=== PATIENT | female | born 1985 | race African-American/Black ===

== ENCOUNTER 2016-12-20 17:50 | Inpatient (IN) ==
[2016-12-20] MEDS ORDERED: SODIUM CHLORIDE 0.9% 500 ML IV STA (18:24)
[2016-12-20] MEDS ORDERED: PANTOPRAZOLE 40 MG VIAL IV STA ×2 (18:24→20:25)
[2016-12-20] MEDS ORDERED: METOCLOPRAMIDE 10 MG/2 ML VIAL IV STA (18:24)
[2016-12-20] MEDS ORDERED: ONDANSETRON 4 MG/2 ML VIAL IV STA (18:24)
--- NOTE | 2016-12-20 18:29 | Emergency Department Note ---
Arrival - Arrival Chief Complaint: Abdominal / Flank Pain Stated Complaint: short of breath, pain in stomach, pin in upper rig ED Nursing Triage Note: RUQ/EPIGASTRIC PAIN FOR PAST WEEK, DOES HAVE HX OF ? TACHYCARDIA, CLEARED BY BEARING [employer]KER, REFERRED TO GI BUT HASNT GOTTEN APPOINTMENT YET, EPIGASTRIC PAIN GETTING WORSE AND INCREASING AFTER EATING Mode of Arrival: Ambulatory Limitations: No Limitations Source: Patient Time Seen by Provider: 12/20/16 18:24 - History of Present Illness HPI Narrative: This 31-year-old black female presents with one-week of midepigastric burning radiating the back, heartburn, belching, water brash, and nausea. She has had no malika vomiting, chills, fever, history of pancreatitis, history of peptic ulcer disease, or history of inflammatory bowel disease. The patient does state she has not had a bowel movement for several days but is otherwise in no acute medical distress.. Allergies/Adverse Reactions: Allergies Allergy/AdvReac Type Severity Reaction Status Date / Time No Known Allergies Allergy Verified 12/20/16 18:10 Home Medications: Home Medications Medication Instructions Recorded Confirmed Type Atenolol 50 mg PO DAILY 10/23/15 12/20/16 History Chlorthalidone [Hygroton] 12.5 mg PO DAILY 12/20/16 12/20/16 History Ergocalciferol (Vitamin D2) 50,000 unit PO Q7D 12/20/16 12/20/16 History [Vitamin D2] Omeprazole [Prilosec] 20 mg PO DAILY 12/20/16 12/20/16 History Potassium Chloride 10 meq PO BID 12/20/16 12/20/16 History Ranitidine Tab [Zantac Tab] 150 mg PO BID 12/20/16 12/20/16 History Review of System - Review of System 12 point system: reviewed and no additional remarkable complaints except as stated - Review of System Constitutional: Present: as per HPI Gastrointestinal: Present: as per HPI Medical,Surgical,& Family Hx - Medical History Cardio: History of: Hypertension - Family History Family History: Reports;: Family Diabetes, Family Heart Disease, Family Hypertension - Social History Smoking Status: Never smoker Exam Physical Examination: GENERAL: Obese black female in no acute distress. HEENT: Normocephalic. No trauma. Moist mucous membranes. EOMI. PERRLA. ENT NML NECK: Supple. No adenopathy. CARDIAC: Regular. No murmurs. CHEST: Clear to auscultation. No respiratory distress. ABDOMEN: Soft. Tender right upper quadrant and midepigastric area. Active bowel sounds. EXTREMITIES: No trauma. Normal ROM. No pedal edema. SKIN: No diaphoresis. No rash. NEURO: Alert. Neuro intact no focal deficits. Vital Signs: Vital Signs Temperature 98.4 F 12/20/16 18:19 Pulse Rate 98 H 12/20/16 18:19 Respiratory Rate 18 12/20/16 18:19 Blood Pressure 109/64 12/20/16 18:19 O2 Sat by Pulse Oximetry 100 12/20/16 18:04 Course - Reevaluation(s) Reevaluation #1: Advised patient of her findings of cholelithiasis and need for removal. - Consultations Consultation #1: Discussed with Dr. Larsen who will admit the patient for further evaluation treatment. Results - Labs CBC & BMP: 12/20/16 18:48 12/20/16 18:48 Labs: I have reviewed the laboratory and noted the normal results - Diagnostic Findings Procedure: Abdominal x-ray: image reviewed by me, report reviewed by me ( Colonic gas and feces consistent with constipation), Ultrasound: image reviewed by me, report reviewed by me (Abdomen: Cholelithiasis) Disposition Clinical Impression: Cholelithiasis Case discussed with: patient, patient's family Disposition: Still a Patient Condition: Stable Time of Disposition: 20:24
[2016-12-20] MEDS ORDERED: METOCLOPRAMIDE 10 MG/2 ML VIAL ONE (18:33)
[2016-12-20] MEDS ORDERED: PANTOPRAZOLE 40 MG VIAL IV ONE ×2 (18:33→20:41)
[2016-12-20] MEDS ORDERED: ONDANSETRON 4 MG/2 ML VIAL ONE (18:33)
[2016-12-20 18:49] LABS: Basophils % 0.8 % (0.0-0.8); Eosinophils # 0.3 10*3/uL (0.0-0.87); Eosinophils % 6.5 % (0.00-10.9); Hematocrit 38.6 VOL% (35.7-47.0); Hemoglobin 13.1 GM/DL (12.0-16.0); Immature Granulocytes % 0.2 %; Immature Granulocytes Absolute 0.01 #; Lymphocytes # 2.3 10*3/uL (1.4-4.0); Lymphocytes % 44.9 % (21.3-54.2); Mean Corpuscular HGB Conc 33.9 GM/DL (32-36); Mean Corpuscular Hemoglobin 29 PG (27-34); Mean Corpuscular Volume 86.5 FL (87-102); Monocytes # 0.5 10*3/uL (0.11-0.8); Neutrophils # 1.9 10*3/uL (1.4-7.4); Neutrophils % 37.6 % (38.7-73.9); Platelet Count 228 T/CUMM (130-400); Red Blood Count 4.46 MC/CUMM (3.8-5.5); Red Cell Distribution Width 11.9 % (9.3-17.3); White Blood Count 5.1 T/CUMM (4-12)
[2016-12-20 18:57] LABS: Apearance,Urine CLEAR (Clear); Bilirubin,Urine Negative (Negative); Blood, Urine Negative (Negative); Glucose,Urine (UA) Negative (Negative); Ketones,Urine Negative (Negative); Mucus,Urine Occasional /LPF (Occasional); Nitrite,Urine Negative (Negative); Protein,Urine Negative; Squamous Epithelial Cell,Urine Occasional /HPF (0-10); Urine Color Yellow (Yellow); Urine Urobilinogen < 2.0 EU/DL (0.2-1.0); WBC,Urine <1 /HPF (0-6)
[2016-12-20 19:17] LABS: Lactic Acid 1.6 MMOL/L (0.4-2.0)
[2016-12-20 19:49] LABS: Blood Urea Nitrogen 7 MG/DL (7-18); Calcium 9.5 MG/DL (8.5-10.1); Potassium 3.7 MMOL/L (3.5-5.1); Sodium 138 MMOL/L (136-145)
--- NOTE | 2016-12-20 20:01 | Ultrasound Report ---
Exam: Ultrasound abdomen Limited, right upper quadrant Clinical History: 31 years Female abdominal pain, nausea and vomiting Technique: Real-time ultrasound of the right upper quadrant with image documentation Comparison: No relevant comparisons Findings: Liver: Unremarkable. No parenchymal abnormalities. No intrahepatic ductal biliary dilatation. Gallbladder: Multiple stones within an otherwise normal-appearing gallbladder Common bile duct: Common bile duct is within normal limits Pancreas: Unremarkable as visualized Right kidney: Unremarkable. No hydronephrosis. No calyceal stones. Impression: 1. Cholelithiasis PROCEDURE INTERPRETED AT [facility] DEPARTMENT OF RADIOLOGY Final Report Signed by: Guerrero Woods MD
[2016-12-20 20:04] LABS: Alanine Aminotransferase 21 U/L (13-56); Alkaline Phosphatase 85 U/L (45-117); Aspartate Amino Transferase 17 U/L (0-37); Bilirubin,Total < 0.39 MG/DL (0.2-1.0); Glucose 89 MG/DL (74-106); Osmolality,Calculated 271.7 MOS/KG (273-304); Total Protein 8.4 G/DL (6.4-8.3)
[2016-12-20 20:05] LABS: Amylase 72 U/L (25-115)
--- NOTE | 2016-12-20 20:08 | XRay Report ---
EXAM: XR abdomen 2V CLINICAL INDICATION: Abdominal Pain COMPARISON: None Findings: No gastric distention. No abnormally dilated small bowel loops are identified to suggest obstruction. No free intraperitoneal air. . Visceral shadows are normal. No abnormal focal soft tissue masses or calcific densities identified in the abdomen or pelvis. IMPRESSION: No radiographic abnormalities PROCEDURE INTERPRETED AT [facility] DEPARTMENT OF RADIOLOGY Final Report Signed by: Guerrero Woods MD
[2016-12-20] MEDS ORDERED: hydrALAZINE 20 MG/1 ML VIAL IV PRN (20:25)
[2016-12-20] MEDS: SODIUM CHLORIDE 0.45% 1,000 ML IV SCH (23:47)
[2016-12-20] MEDS: HYDROmorphone 2 MG/1 ML VIAL IV PRN (23:50)
[2016-12-20] MEDS: METOCLOPRAMIDE 10 MG/2 ML VIAL IV SCH (23:50)
[2016-12-21] MEDS: METOCLOPRAMIDE 10 MG/2 ML VIAL IV SCH ×3 (05:42→17:36)
[2016-12-21] MEDS: SODIUM CHLORIDE 0.45% 1,000 ML IV SCH ×4 (05:43→20:10)
[2016-12-21] MEDS: PANTOPRAZOLE 40 MG VIAL IV SCH (09:15)
--- NOTE | 2016-12-21 09:23 | Gastrointestinal Consult Note ---
<Lucy Mackey - Last Filed: 12/21/16 09:21> Assessment and Plan (1) Epigastric pain Status: Acute Assessment and plan: 12/22-Several day history of epigastric pain, worsening GERD, nausea and RUQ abdominal pain radiating into back. No prior history of PUD or endoscopy. Gallbladder US results noted as below. Plan for EGD today to further evaluate. Plan and addendum to follow by Dr Simms. Current Visit: Yes History of Present Illness Chief complaint: Epigastric pain History of present illness: Ms. Lopez is a 31 year old female who was admitted for several day history of epigastric pain. Pt is a very good historian. Pt states that she was in her usual state of health approximately 8 or 9 days ago. Patient states that on last Monday, she had fairly sudden onset of epigastric pain that radiated to her right upper quadrant and into her back. This is also associated with nausea without vomiting. Patient states the pain was precipitated by meal ingestion at that time. Patient states since onset, she has had multiple episodes on a daily basis with decreased appetite and intake. She presented to the ER at [place] on yesterday and was told at that time that she did take MiraLAX and was sent home. Patient states the pain continued and became more severe last night before she presented to the emergency room for further evaluation. Upon admission, patient had abdominal ultrasound with findings of cholelithiasis with normal common bile duct without ductal dilatation and no evidence of cholecystitis. Patient's labs are reviewed and she has normal LFTs as well as normal lipase. Patient has no prior history of peptic ulcer disease or endoscopy in the past. She has no family history of gallbladder disease. Patient has had 3 prior pregnancies without any symptoms such as this. She denies any NSAID use other than occasionally for headache. She denies any melena or hematochezia. She denies any recent weight loss, fever or chills. She has noted to take Zantac and Prilosec with minimal control of her GERD. She denies any dysphagia but has had some recent dyspepsia with increased belching and bloating. Dr. Smyth is consulted with patient and is awaiting our recommendations. Home Medications Medication Instructions Recorded Confirmed Type Atenolol 50 mg PO DAILY 10/23/15 12/20/16 History Chlorthalidone [Hygroton] 12.5 mg PO DAILY 12/20/16 12/20/16 History Ergocalciferol (Vitamin D2) 50,000 unit PO Q7D 12/20/16 12/20/16 History [Vitamin D2] Omeprazole [Prilosec] 20 mg PO DAILY 12/20/16 12/20/16 History Potassium Chloride 10 meq PO BID 12/20/16 12/20/16 History Ranitidine Tab [Zantac Tab] 150 mg PO BID 12/20/16 12/20/16 History Allergies Allergy/AdvReac Type Severity Reaction Status Date / Time No Known Allergies Allergy Verified 12/20/16 18:10 Medical,Surgical,& Family Hx - Medical History Cardio: History of: Hypertension HEENT: History of: Eye Problem (wears prescription glasses) Gastrointestinal: History of: GERD - Family History Family History: Reports;: Family Diabetes, Family Heart Disease, Family Hypertension - Social History Smoking Status: Never smoker 12 point system: reviewed and no additional remarkable complaints except as stated - Constitutional Constitutional: Present: as per HPI - EENT Eyes: Present: as per HPI Ears: Present: as per HPI Nose, mouth and throat: Present: as per HPI - Cardiovascular Cardiovascular: Present: as per HPI - Respiratory Respiratory: Present: as per HPI - Gastrointestinal Gastrointestinal: Present: as per HPI, abdominal pain, bloating, dyspepsia, heartburn, nausea - Genitourinary Genitourinary: Present: as per HPI - Musculoskeletal Musculoskeletal: Present: as per HPI - Neurological Neurological: Present: as per HPI - Psychiatric Psychiatric: Present: as per HPI - Endocrine Endocrine: Present: as per HPI - Hematologic/Lymphatic Hematologic/Lymphatic: Present: as per HPI Exam - Constitutional Vitals: Period Temp Pulse Resp BP Sys/Raman Pulse Ox Last 24 Hr 97.1 F-99.1 F 77-98 18-18 95-122/50-75 99-100 General appearance: normal weight, no acute distress - Head Head exam: Present: normal inspection, normocephalic - Eye Eye exam: Present: other (lids and conjunctiva unremarakable). Absent: scleral icterus - ENT ENT exam: Present: normal exam, normal oropharynx - Neck Neck exam: Present: normal inspection - Respiratory Respiratory exam: Present: clear to auscultation bilaterally. Absent: rales, rhonchi, wheezes - Cardiovascular Cardiovascular exam: Present: regular rate and rhythm. Absent: diastolic murmur , JVD, systolic murmur - GI/Abdominal GI/Abdominal exam: Present: normal bowel sounds, soft. Absent: ascites, distended, mass, organomegaly, tenderness - Extremities Exam Extremities exam: Present: normal inspection, full ROM - Back Exam Back exam: Present: normal inspection - Neurological Exam Neurological exam: Present: alert, oriented X3 - Psychiatric Psychiatric exam: Present: normal affect, normal mood - Skin Skin exam: Present: normal color, warm, dry Results - Labs CBC & BMP: 12/20/16 18:48 12/20/16 18:48 Lab Results: I have reviewed the past 24 hour labs - Diagnostic Findings Procedure: Ultrasound: report reviewed by wa <Christiano Simms - Last Filed: 12/21/16 11:09> History of Present Illness Chief complaint: 3030 History of present illness: Ms. Lopez is a 31 year old female Exam - Constitutional Vitals: Period Temp Pulse Resp BP Sys/Raman Pulse Ox Last 24 Hr 97.1 F-99.1 F 77-98 18-20 95-138/50-78 96-100 Results - Labs CBC & BMP: 12/20/16 18:48 12/20/16 18:48
[2016-12-21] MEDS ORDERED: BISACODYL 5 MG TABLET PO PRN (11:16)
--- NOTE | 2016-12-21 11:16 | General Surg History&Physical ---
Assessment and Plan (1) Epigastric pain Status: Acute Assessment and plan: Patient has cholelithiasis on ultrasound, there is no evidence of cholecystitis or obstruction. Her symptoms appear clinically to represent more gastritis. Will consult gastroenterology for evaluation and recommendations and appreciate their input. In the interim we will continue PPI daily. Current Visit: Yes (2) Cholelithiasis Status: Acute Assessment and plan: May be an incidental finding. Patient may also be experiencing symptomatically lithiasis. We discussed that her symptoms may be multifactorial, but we will wait and GI evaluation for the above. Current Visit: Yes Qualifiers: Cholelithiasis location: gallbladder Cholecystitis presence: without cholecystitis Biliary obstruction: without biliary obstruction Qualified Code(s): K80.20 - Calculus of gallbladder without cholecystitis without obstruction (3) Constipation Status: Acute Assessment and plan: We will try MiraLAX and Dulcolax. No evidence of obstruction. Current Visit: Yes (4) History of hypertension Status: Acute Assessment and plan: Continue home meds Current Visit: Yes History of Present Illness Chief complaint: abdominal pain History of present illness: Ms. Lopez is a 31 year old female with past mental history of GERD and hypertension who came to the emergency department with ongoing epigastric abdominal pain which radiates to her back for several days associated with nausea, regurgitation, and belching which is exacerbated by any oral intake including water. No prior known history of biliary disease or peptic ulcer disease. She has not received evaluation for the symptoms prior. She denies anorexia, weight loss, hematochezia, or melena. She reports constipation for approximately 1 week without abdominal distension; no prior history abdominal surgery. Home Medications Medication Instructions Recorded Confirmed Type Atenolol 50 mg PO DAILY 10/23/15 12/20/16 History Chlorthalidone [Hygroton] 12.5 mg PO DAILY 12/20/16 12/20/16 History Ergocalciferol (Vitamin D2) 50,000 unit PO Q7D 12/20/16 12/20/16 History [Vitamin D2] Omeprazole [Prilosec] 20 mg PO DAILY 12/20/16 12/20/16 History Potassium Chloride 10 meq PO BID 12/20/16 12/20/16 History Ranitidine Tab [Zantac Tab] 150 mg PO BID 12/20/16 12/20/16 History Allergies Allergy/AdvReac Type Severity Reaction Status Date / Time No Known Allergies Allergy Verified 12/20/16 18:10 Medical,Surgical,& Family Hx - Medical History Cardio: History of: Hypertension Neurology: No history of: Seizures HEENT: History of: Eye Problem (wears prescription glasses) Gastrointestinal: History of: GERD - Surgical History Surgical History: noncontributory - Family History Family History: Reports;: Family Diabetes, Family Heart Disease, Family Hypertension - Social History Smoking Status: Never smoker Exam - Constitutional Vitals: Period Temp Pulse Resp BP Sys/Raman Pulse Ox Last 24 Hr 97.1 F-99.1 F 77-98 18-20 95-138/50-78 96-100 General appearance: no acute distress - Head Head exam: Present: normocephalic - Eye Eye exam: Absent: scleral icterus - Neck Neck exam: Present: trachea midline - Respiratory Respiratory exam: Present: clear to auscultation bilaterally - Cardiovascular Cardiovascular exam: Present: RRR - GI/Abdominal GI/Abdominal exam: Present: normal bowel sounds, tenderness (epigastric; no RUQ pain or Ayala's), soft. Absent: distended - Extremities Exam Extremities exam: Absent: calf tenderness, edema - Neurological Exam Neurological exam: Present: alert, oriented X3 Speech: Present: normal - Skin Skin exam: Present: normal color - Constitutional Constitutional: Present: as per HPI - Cardiovascular Cardiovascular: Absent: chest pain at rest, dyspnea on exertion, orthopnea - Respiratory Respiratory: Absent: cough, wheezing - Gastrointestinal Gastrointestinal: Present: as per HPI - Genitourinary Genitourinary: Absent: dysuria, flank pain Results - Labs CBC & BMP: 12/20/16 18:48 12/20/16 18:48 Lab Results: I have reviewed the past 24 hour labs Labs: LFTs unremarkable; urinalysis unremarkable; urine test is negative - Diagnostic Findings Procedure: Abdominal Flat/Erect: image reviewed by me, report reviewed by me ( no acute findings), Ultrasound: report reviewed by me (abdominal; cholelithiasis without evidence of obstruction or gallbladder distension or wall thickening)
--- NOTE | 2016-12-21 11:20 | Operative Note ---
Date of procedure: 12/21/16 Pre-op diagnosis: Epigastric pain Procedure: EGD 31-year-old black female with several week history of abdominal pain worsening ultrasound with findings of gallstones. She does have a history of reflux in the past she is now for upper endoscopy to further evaluate. Informed consent was obtained the patient. She was sedated with general anesthesia per anesthesia protocol. Patient was placed in left lateral decubitus position the Olympus flexible video upper endoscope was inserted oral cavity under direct vision esophagus intubated. Findings: Esophagus-normal proximal mid esophageal mucosa distal esophagus with small hiatal hernia no significant esophagitis stricture was identified. Stomach-normal insufflation normal mucosa to direct and retroflexed views of the body fundus and cardia the stomach. Mild gastritis was seen no ulcers. Pylorus-normal Duodenum-normal bulb and duodenum to the third portion of duodenum. Ampulla appeared normal. The procedure terminated placed our procedure well she is discharge recovery in good condition. Postop diagnosis: 1. Gastroesophageal reflux disease-continue PPI treatment. #2 gastritis-very mild doubt this is source of her symptoms. Would continue PPI treatment limit nonsteroidal use. 2. Proceed with cholecystectomy per surgery plans Anesthesia: other (General) Surgeon / Physician: Christiano Simms Estimated blood loss: none Specimens: none sent Condition: stable Disposition: post procedure unit Results - Labs CBC & BMP: 12/20/16 18:48 12/20/16 18:48 Discharge Plan - Discharge Medications No Action Atenolol 50 mg PO DAILY Ranitidine Tab [Zantac Tab] 150 mg PO BID Potassium Chloride 10 meq PO BID Ergocalciferol (Vitamin D2) [Vitamin D2] 50,000 unit PO Q7D Chlorthalidone [Hygroton] 12.5 mg PO DAILY Omeprazole [Prilosec] 20 mg PO DAILY - Follow Up or Referral - Forms/Instructions
--- NOTE | 2016-12-21 11:21 | Anesthesia Post-Op ---
Anesthesia Post OP - Post Ansesthetic Evaluation Patient seen in post op: Yes Resp: within normal limits CV: within normal limits Mental: within normal limits Temp: within normal limits [id number]: within normal limits Nausea and Vomiting: within normal limits Pain: within normal limits
[2016-12-21] MEDS: ATENOLOL 50 MG TABLET PO SCH (12:58)
[2016-12-21] MEDS: CHLORTHALIDONE 25 MG TABLET PO SCH (12:58)
[2016-12-21] MEDS: POTASSIUM CHLORIDE 10 MEQ TABLET PO SCH ×2 (12:58→21:48)
[2016-12-21] MEDS: POLYETHYLENE GLYCOL POWDER 17 GM PACK PO SCH (12:59)
[2016-12-21] MEDS ORDERED: PROPOFOL 200 MG/20 ML VIAL IV ONE (14:11)
[2016-12-21] MEDS ORDERED: LIDOCAINE 100 MG/5 ML SYRINGE ONE (14:11)
[2016-12-21] MEDS: HYDROmorphone 2 MG/1 ML VIAL IV PRN (18:40)
[2016-12-21] MEDS: ONDANSETRON 4 MG/2 ML VIAL IV PRN (21:03)
[2016-12-22] MEDS: METOCLOPRAMIDE 10 MG/2 ML VIAL IV SCH ×4 (00:52→17:37)
[2016-12-22] MEDS: SODIUM CHLORIDE 0.45% 1,000 ML IV SCH ×3 (04:53→20:31)
[2016-12-22] MEDS: PANTOPRAZOLE 40 MG VIAL IV SCH (08:27)
--- NOTE | 2016-12-22 09:00 | Gastrointestinal Progress Note ---
<Lucy Mackey - Last Filed: 12/22/16 08:58> Assessment and Plan (1) Epigastric pain Status: Acute Assessment and plan: 12/22-EGD findings noted as below. For laparoscopic cholecystectomy today. Will await results of intraoperative cholangiogram. Plan an addendum to followed by Dr. Simms 12/21-Several day history of epigastric pain, worsening GERD, nausea and RUQ abdominal pain radiating into back. No prior history of PUD or endoscopy. Gallbladder US results noted as below. Plan for EGD today to further evaluate. Plan and addendum to follow by Dr Simms. Current Visit: Yes Gastroenterology - PN: Subj Interval history: CC: Epigastric pain Patient is seen awake and alert with family at bedside. She is post EGD on yesterday with only findings of GERD and gastritis however very mild in nature. She states that she had an episode of pain and nausea vomiting last night but this is improved this morning. She is noted to be scheduled for laparoscopic cholecystectomy today. Abdomen is soft, mild tenderness to palpation. No repeat labs noted at this time. ROS: Denies shortness breath or chest pain Exam (Progress Note) - Constitutional Vitals: Period Temp Pulse Resp BP Sys/Raman Pulse Ox Last 24 Hr 97.0 F-98.9 F 69-87 16-20 97-138/51-88 94-99 General appearance: normal weight, no acute distress - Head Head exam: Present: normal inspection, normocephalic - Eye Eye exam: Present: other (Lids and conjunctive are unremarkable). Absent: scleral icterus - ENT ENT exam: Present: normal exam, normal oropharynx - Neck Neck exam: Present: normal inspection - Respiratory Respiratory exam: Present: clear to auscultation bilaterally. Absent: rales, rhonchi, wheezes - Cardiovascular Cardiovascular exam: Present: regular rate and rhythm. Absent: diastolic murmur , JVD, systolic murmur - GI/Abdominal GI/Abdominal exam: Present: normal bowel sounds, tenderness, soft. Absent: ascites, distended, mass, organomegaly - Extremities Exam Extremities exam: Present: normal inspection, full ROM - Back Exam Back exam: Present: normal inspection - Neurological Exam Neurological exam: Present: alert, oriented X3 - Psychiatric Psychiatric exam: Present: normal affect, normal mood - Skin Skin exam: Present: normal color, warm, dry Results - Labs CBC & BMP: 12/20/16 18:48 12/20/16 18:48 Lab Results: I have reviewed the past 24 hour labs <Christiano Simms - Last Filed: 12/22/16 21:18> Exam (Progress Note) - Constitutional Vitals: Period Temp Pulse Resp BP Sys/Raman Pulse Ox Last 24 Hr 97.2 F-98.1 F 67-98 16-20 105-128/51-82 94-100 Results - Labs CBC & BMP: 12/20/16 18:48 12/20/16 18:48
[2016-12-22] MEDS: CHLORTHALIDONE 25 MG TABLET PO SCH (10:53)
[2016-12-22] MEDS: ATENOLOL 50 MG TABLET PO SCH (10:53)
[2016-12-22] MEDS ORDERED: ACETAMINOPHEN 1,000 MG/100 ML VIAL IV ONE (10:59)
[2016-12-22] MEDS ORDERED: TISSUE ADHESIVE 1 EACH APPLICATOR TOP ONE (10:59)
[2016-12-22] MEDS ORDERED: LIDOCAINE 1%/EPI INJ 20 ML VIAL ONE (11:00)
[2016-12-22] MEDS ORDERED: KETOROLAC 30 MG/1 ML VIAL ONE (11:16)
[2016-12-22] MEDS ORDERED: ROCURONIUM 100 MG/10 ML VIAL IV ONE (11:16)
[2016-12-22] MEDS ORDERED: PHENYLEPHRINE 1 MG/10 ML SYRINGE IV ONE (11:16)
[2016-12-22] MEDS ORDERED: ONDANSETRON 4 MG/2 ML VIAL ONE ×2 (11:16→13:02)
[2016-12-22] MEDS ORDERED: GLYCOPYRROLATE 0.4 MG/2 ML VIAL ONE (11:16)
[2016-12-22] MEDS ORDERED: LIDOCAINE 2% 5 ML VIAL ONE (11:16)
[2016-12-22] MEDS ORDERED: NEOSTIGMINE 10 MG/10 ML VIAL ONE (11:16)
[2016-12-22] MEDS ORDERED: DEXAMETHASONE 10 MG/1 ML VIAL ONE (11:16)
[2016-12-22] MEDS ORDERED: PROPOFOL 200 MG/20 ML VIAL IV ONE (11:16)
--- NOTE | 2016-12-22 12:36 | Operative Note ---
Date of procedure: 12/22/16 Pre-op diagnosis: Symptomatic cholelithiasis Post-op diagnosis: same Procedure: Procedure performed: Laparoscopic cholecystectomy with intraoperative cholangiogram Procedure in detail: After informed consent was obtained, patient was taken operating suite lights upon the operating table. After general anesthesia was induced the abdomen was prepped and draped in usual sterile fashion. After procedural pause local anesthetic and strength skin and subcutaneous tissue just above the umbilicus. Incision made and dissection carried down through skin and soft tissue. Fascia grasped with Cambridge's and elevated fascial incision was made. The abdominal cavity was entered bluntly. Finger sweep revealed no adhesions. Elizalde trocar placed under direct visualization. Pneumoperitoneum achieved. Camera inserted bowel mesentery inspected found to be free of any violation. Patient was placed in reverse Trendelenburg position rotated to the left. 2 5 mm trochars were placed in the right upper quadrant 11 mm subxiphoid trocar was placed all under visualization. Gallbladder was grasped and elevated. Infundibulum the gallbladder retracted toward the right hip. Dissection carried out from lateral to medial approach and the triangle of Caroline. The cystic duct and cystic artery were identified and isolated. Using a critical view technique these were the only 2 structures entering the gallbladder. Clip was placed the junction of the cystic duct neck of the gallbladder and partial transection made on the cystic duct. Cholangiocatheter inserted and secured in place intraoperative glandular and performed. The cystic duct common bile duct intra-and extrahepatic ducts all filled with no filling defects identified. Contrast was seen entering the small bowel. The cholangiocatheter was removed and 2 clips were placed on the cystic duct just distal to the partial transection and the transection was completed. Cystic artery was triple clipped and transected high along the gallbladder wall. Gallbladder was then removed from the gallbladder fossa using hook cautery and placed in Endo Catch sac removed to the Elizalde trocar site. Pneumoperitoneum was reachieved in the right upper quadrant thoroughly irrigated and suctioned. Irrigant remained clear. There is excellent hemostasis. Clips inspected found to be intact no leakage of bilious or sanguinous fluid. The trochars were removed his abdomen desufflated. Fascia at the Elizalde trocar site closed using 0 Vicryl [id number] interrupted suture. Wounds thoroughly irrigated and suctioned and the deep dermal layer closed with 3-0 Vicryl. 4-0 Monocryl used to close skin. Sterile dressings applied. Patient was extubated and taken recovery in stable condition. All lap and needle counts correct at the end of the case. Anesthesia: JIMBOA Surgeon / Physician: Farzad Smyth Estimated blood loss: other (Less than 10 cc) Specimens: other (Gallbladder) Condition: stable Disposition: PACU Results - Labs CBC & BMP: 12/20/16 18:48 12/20/16 18:48 Discharge Plan - Discharge Medications No Action Atenolol 50 mg PO DAILY Ranitidine Tab [Zantac Tab] 150 mg PO BID Potassium Chloride 10 meq PO BID Ergocalciferol (Vitamin D2) [Vitamin D2] 50,000 unit PO Q7D Chlorthalidone [Hygroton] 12.5 mg PO DAILY Omeprazole [Prilosec] 20 mg PO DAILY - Follow Up or Referral - Forms/Instructions
--- NOTE | 2016-12-22 12:49 | Anesthesia Post-Op ---
Anesthesia Post OP - Post Ansesthetic Evaluation Patient seen in post op: Yes Resp: within normal limits CV: within normal limits Mental: within normal limits Temp: within normal limits Gjam-[id number]-[id number]: within normal limits Nausea and Vomiting: within normal limits Pain: within normal limits
[2016-12-22] MEDS ORDERED: fentaNYL 100 MCG/2 ML VIAL ONE (12:50)
[2016-12-22] MEDS ORDERED: MIDAZOLAM 2 MG/2 ML VIAL ONE (12:50)
[2016-12-22] MEDS ORDERED: SEVOFLURANE 1 UNIT/15 MINUTE INH ONE (12:50)
[2016-12-22] MEDS ORDERED: ONDANSETRON 4 MG/2 ML VIAL IV PRN (13:02)
[2016-12-22] MEDS ORDERED: HYDROmorphone 2 MG/1 ML VIAL ONE (13:02)
[2016-12-22] MEDS: HYDROmorphone 2 MG/1 ML VIAL IV PRN ×3 (13:05→14:34)
[2016-12-22] MEDS: POTASSIUM CHLORIDE 10 MEQ TABLET PO SCH ×2 (13:53→20:53)
[2016-12-22] MEDS: POLYETHYLENE GLYCOL POWDER 17 GM PACK PO SCH (13:53)
--- NOTE | 2016-12-22 16:34 | Fluoroscopy Report ---
Cholangiogram December 22, 2016 Indication: Right upper quadrant pain, postcholecystectomy Comparison: No relevant comparisons Technique: Interoperative cholangiogram was performed in routine fashion after cannulation of the cystic duct. Fluoroscopy time recorded at 34 seconds. Radiation dose calculated 0. 0953 mGym2 Findings: Contrast flows freely through the nondilated intra and extrahepatic bile ducts. Normal tapering at the ampulla. No intraluminal filling defects. No extravasation. Impression: Normal cholangiogram PROCEDURE INTERPRETED AT [facility] DEPARTMENT OF RADIOLOGY Final Report Signed by: Guerrero Woods MD
[2016-12-22] MEDS: ONDANSETRON 4 MG/2 ML VIAL IV PRN (17:37)
[2016-12-23] MEDS: METOCLOPRAMIDE 10 MG/2 ML VIAL IV SCH ×3 (00:54→13:31)
[2016-12-23] MEDS: SODIUM CHLORIDE 0.45% 1,000 ML IV SCH (03:59)
--- NOTE | 2016-12-23 07:57 | Event Note ---
Afebrile vital signs stable status post cholecystectomy doing well tolerating diet. Minimal nausea no vomiting pain well controlled abdomen soft appropriate tenderness nondistended incisions look good. She can go today. Follow-up with me in 2 weeks. Discharge instructions given. Instructed to call for any nausea vomiting worsening abdominal pain redness or drainage from the incisions fever any sign of infection, chest pain shortness of breath, jaundice or any other concern
[2016-12-23] MEDS: POLYETHYLENE GLYCOL POWDER 17 GM PACK PO SCH (10:22)
[2016-12-23] MEDS: CHLORTHALIDONE 25 MG TABLET PO SCH (10:25)
--- NOTE | 2016-12-23 10:26 | Discharge Summary ---
Hospital Course - Hospital Course Hospital Course: Patient is a 31-year-old female was admitted with abdominal pain and cholelithiasis. Her symptomology was concerning for gastritis gastroenterology was consulted and performed EGD with findings only significant for mild gastritis. Considering the findings of cholelithiasis for significant symptomatic, she underwent left scopic cholecystectomy with intraoperative cholangiogram with Dr. Dr. Smyth on December 22, 2016. Her postoperative course was uneventful. She was tolerating oral intake, passing flatus, voiding , and tolerating activity without difficulty. Her symptoms were significantly improved at the time of discharge. No comp occasions to note. She is provided with postoperative instructions and a postoperative appointment. Diagnosis - Discharge Diagnosis (1) Epigastric pain Status: Acute (2) Cholelithiasis Status: Acute (3) Constipation Status: Acute (4) History of hypertension Status: Acute (5) Gastritis Status: Acute Specialty Discharge - Follow Up or Referrals Follow up with: Farzad Smyth MD [Physician] - 01/05/17 9:15 am Discharge Plan - Discharge Data Disposition: Disch To Home/Self Care Condition at Discharge: Stable Discharge Diet: other (See below) Activity: no lifting (Greater than 10 pounds) Hygiene: may shower Driving: other (No driving while taking narcotics) Contact your physician if you experience:: fever over 101, Difficulty voiding, Redness or swelling, Nausea/Vomiting, Shortness of breath, Bleeding, pain uncontrolled by pain medications Wound / Dressing Care Instructions: Keep surgical incision is clean, dry and covered. Do not soak or submerge wounds. - Discharge Medications New Pantoprazole Tab [Protonix Tab] 40 mg PO DAILY #30 tablet HYDROcodone/ACETAMIN 7.5-325 [[place] 7.5-325] 1 tablet PO Q4H PRN #30 tablet PRN Reason: Pain Moderate To Severe (4-10) Continue Atenolol 50 mg PO DAILY Discontinued Ranitidine Tab [Zantac Tab] 150 mg PO BID Omeprazole [Prilosec] 20 mg PO DAILY No Action Potassium Chloride 10 meq PO BID Ergocalciferol (Vitamin D2) [Vitamin D2] 50,000 unit PO Q7D Chlorthalidone [Hygroton] 12.5 mg PO DAILY - Follow Up or Referral Follow Up: Farzad Smyth MD [Physician] - 01/05/17 9:15 am - Forms/Instructions Instructions: Laparoscopic Cholecystectomy (DC), Diet for Ulcers and Gastritis (GEN), Gastritis (DC), Hydrocodone/Acetaminophen (By mouth), Pantoprazole (By mouth) Additional Discharge Instructions: F/u PCP in 1-2 weeks re: gastritis and hospital f/u Exam - Constitutional Vitals: Period Temp Pulse Resp BP Sys/Raman Pulse Ox Last 24 Hr 97.5 F-99.0 F 67-98 16-20 110-133/55-82 94-100 General appearance: no acute distress - Eye Eye exam: Absent: scleral icterus - Respiratory Respiratory exam: Present: clear to auscultation bilaterally - Cardiovascular Cardiovascular exam: Present: regular rate and rhythm - GI/Abdominal GI/Abdominal exam: Present: hypoactive bowel sounds, tenderness (Appropriate postoperative tenderness), soft, other (Surgical incisions are clean, dry and intact). Absent: distended DS: Provider Date of admission: 12/20/16 20:24 Primary care physician: . No PCP Attending physician on admission: Farzad Smyth MD Consults: 12/21/16 06:43 Consult to Physician [CONS] Routine Comment: Possible ulcer? Consulting Provider: Christiano Simms Consulting Provider Notified: Yes When should Consulting Provider be notified: Now Person Notified: danny love Date Notified: 12/21/16 Time Notified: 09:03 Discharging clinician: Nena Khanna PA-C
[2016-12-23] MEDS: ATENOLOL 50 MG TABLET PO SCH (10:27)
[2016-12-23] MEDS: POTASSIUM CHLORIDE 10 MEQ TABLET PO SCH (10:27)
[2016-12-23] MEDS: PANTOPRAZOLE 40 MG VIAL IV SCH (10:27)
[2016-12-23 11:04] VITALS: BP 139/90
[2016-12-23] MEDS ORDERED: INFLUENZA VIRUS VACCINE 0.5 ML SYRINGE IM ONE (11:09)
--- NOTE | 2016-12-23 11:23 | Pathology Report from [facility] ---
[facility] [place] ACCESSION # : [id number] PATIENT NAME : Nicho Mina ORDERING DR : Farzad Smyth MD CLINICAL HX: Cholelithiasis POST-OP DX: Same SPECIMEN INFO: Gallbladder GROSS DESCRIPTION: The specimen is received in formalin labeled with the patients name and consists of an intact gallbladder measuring 6.5 x 3.2 cm. The serosa is smooth and bernabe-pink. The wall averages 0.2 cm in thickness. The mucosal surface is velvety and red-saenz. The lumen is filled with hyperemic yellow-brown bile with a single black stone noted measuring 0.6 x 0.5 cm. Kelp Or Seagrass Gatherer sections submitted in one cassette. DIAGNOSIS FOR NICHO MINA: GALLBLADDER, CHOLECYSTECTOMY: Chronic cholecystitis; cholelithiasis. COLLECTED DATE: 12/22/2016 [facility] REPORT DATE: 12/23/2016 ELECTRONICALLY SIGNED BY: Antoinette Juan M.D. 12/23/2016 - 9:24:56 MTDHarsha
--- NOTE | 2016-12-28 07:19 | Physician Query Form ---
CLICK EDIT DOCUMENT TO SELECT QUERY ANSWER --> OK --> SIGN Lanny Echeverria RN, CCDS Certified Clinical Buyer [employer]ship W) [phone] (f) [phone] [email or web address] PROVIDERS: Make your selection(s) from the choices in EACH section by typing an "x" and enter comments in the comment section. Please use your independent medical judgment in providing your response. This request does not imply that any particular answer is desired or expected. CLINICAL INDICATORS: (Providers should not edit this section) Pathology Findings: GROSS DESCRIPTION: The specimen is received in formalin labeled with the patients name and consists of an intact gallbladder measuring 6.5 x 3.2 cm. The serosa is smooth and bernabe-pink. The wall averages 0.2 cm in thickness. The mucosal surface is velvety and red-saenz. The lumen is filled with hyperemic yellow-brown bile with a single black stone noted measuring 0.6 x 0.5 cm. Customer Engagement Manager sections submitted in one cassette. DIAGNOSIS FOR RIKKI MINA: GALLBLADDER, CHOLECYSTECTOMY: Chronic cholecystitis; cholelithiasis. Abnormal Pathology findings are not reported unless an authorized provider indicates their clinical significance Please select the best choice: ( x) I agree with the Pathology findings ( ) I disagree with the Pathology findings ( ) No clinical significance ( ) Other/clarification of findings, please specify: ( ) Clinically unable to determine COMMENTS: PLEASE ALSO DOCUMENT RESPONSE IN PROGRESS NOTES AND/OR DISCHARGE SUMMARY Use of terms such as suspected, likely, or probable (associated with a specific diagnosis that is being evaluated, monitored, or treated as if it exists) are acceptable and can be restated in the discharge summary if not ruled out. MTDD
== END 2016-12-23 12:35 | disposition home or self-care (01) | DRG 419 ==
LOC: N.ED 17:50 → N.EDINP 20:24 → N.3E 22:04
PROVIDERS: ADMIT Surgery; ATTEND Surgery
PROC: LAPCHOL (2016-12-22 11:16)